=== PATIENT | female | born 1975 | race Caucasian/White ===

== ENCOUNTER 2017-02-06 00:52 | Observation (INO) | payer MEDICAID ==
[2017-02-06] MEDS ORDERED: TERBUTALINE SULFATE 1 MG/ML 1ML VIAL SC ONE (01:15)
[2017-02-06] MEDS ORDERED: LACTATED RINGER'S 1,000 ML IV SCH (01:26)
[2017-02-06] MEDS: TERBUTALINE SULFATE 1 MG/ML 1ML VIAL SC SCH ×3 (01:40→02:00)
[2017-02-06 02:14] LABS: Basophils # (auto) 0 uL; Basophils % (auto) 0.1 % (0.0-2.0); Eosinophils # (auto) 0.1 uL; Eosinophils % (auto) 0.3 % (0.0-7.0); Hematocrit 34.8 % (36.0-46.0); Hemoglobin 11.5 g/dL (12.2-16.2); Lymphocytes # (auto) 2.6 uL; Lymphocytes % (auto) 13.2 % (10.0-50.0); Mean Corpuscular Hemoglobin 27.9 pg (28.0-32.0); Mean Corpuscular Hgb Conc. 33.1 g/dL (32.0-36.0); Mean Corpuscular Volume 84.3 fL (80.0-100.0); Mean Platelet Volume 9.5 fL (6.9-10.8); Monocytes # (auto) 0.9 uL; Monocytes % (auto) 4.5 % (0.0-12.0); Neutrophils # (auto) 15.9 uL; Neutrophils % (auto) 81.9 % (37.0-80.0); Nucleated Red Blood Cells % 0.1 %; Platelet Count (auto) 243 10^3/uL (140-450); Red Cell Distribution Width 13.7 % (11.8-14.3); White Blood Cell 19.4 10^3/uL (4.4-10.8)
[2017-02-06 02:30] LABS: INR 0.84 (0.9-1.15); Prothrombin Time 9.1 sec (9.37-12.3)
[2017-02-06 02:35] LABS: Albumin 2.3 g/dL (3.4-5.0); Calcium 9.1 mg/dL (8.5-10.1); Potassium 3.3 mmol/L (3.5-5.1)
[2017-02-06 02:37] LABS: BUN/Creatinine Ratio 14.4
[2017-02-06 02:40] LABS: Bilirubin, Total 0.4 mg/dL (0.2-1.0); Total Protein 7.5 g/dL (6.4-8.2)
[2017-02-06 02:48] LABS: Urine Bilirubin Negative (Negative); Urine Blood TRACE /uL (Negative); Urine Color Colorless (Yellow); Urine Glucose Normal (Normal); Urine Ketone Negative (Negative); Urine Nitrite Negative (Negative); Urine RBC <1 /hpf (0 - 4); Urine Squamous Epithelial Cell FEW /hpf (<5); Urine Urobilinogen Normal (Negative)
[2017-02-06] MEDS ORDERED: EMTRTAB7 PO (05:01)
[2017-02-08 11:07] LABS: HTLV-I/II Antibodies Qual Negative (Negative)
== END 2017-02-06 01:34 | disposition left against medical advice (07) | DRG 566 ==
LOC: LDRP 00:52
PROVIDERS: ADMIT Obstetrics & Gynecology; ATTEND Obstetrics & Gynecology
DX: O26.893 Other specified pregnancy related conditions, third trimester (principal); B20 Human immunodeficiency virus [HIV] disease; O98.713 Human immunodeficiency virus [HIV] disease complicating pregnancy, third trimester; R10.9 Unspecified abdominal pain; Z3A.35 35 weeks gestation of pregnancy
CPT/HCPCS: 36415; 59025; 80053; 80307; 81001; 81002; 85025; 85610; 85730; 86592; 86701; 86703; 86762; 86790; 86850; 86900; 86901; 87340; 94760; 96372; G0378; J3105

== ENCOUNTER 2023-03-09 15:40 | Emergency (ER) | payer MEDICAID ==
[~2023-03-09] VITALS: Ht 165.1 cm; Wt 48.0 kg
[~2023-03-09 15:40] MED LIST: EMTRTAB7 PO
[2023-03-09 16:20] VITALS: BP 102/65; PULSE 130; RESP 18; O2SAT 95
[2023-03-09 17:22] LABS: Basophils # (auto) 0 10 ^3/uL (0-0.2); Basophils % (auto) 0.2 % (0.0-2.0); Eosinophils # (auto) 0.2 10 ^3/uL (0-0.8); Eosinophils % (auto) 1.9 % (0.0-7.0); Hematocrit 38.3 % (36.0-46.0); Hemoglobin 12.9 g/dL (12.2-16.2); Lymphocytes # (auto) 0.4 10 ^3/uL (0.4-5.4); Lymphocytes % (auto) 5.6 % (10.0-50.0); Mean Corpuscular Hemoglobin 27.9 pg (28.0-32.0); Mean Corpuscular Hgb Conc. 33.7 g/dL (32.0-36.0); Mean Corpuscular Volume 82.8 fL (80.0-100.0); Monocytes # (auto) 0.5 10 ^3/uL (0-1.3); Monocytes % (auto) 6.7 % (0.0-12.0); Neutrophils # (auto) 6.9 10 ^3/uL (1.6-8.6); Neutrophils % (auto) 85.6 % (37.0-80.0); Nucleated Red Blood Cells % 0.3 %; Red Blood Cells 4.63 10^6/uL (4.0-5.20); Red Cell Distribution Width 16.2 % (11.8-14.3)
[2023-03-09] MEDS ORDERED: SODIUM CHLORIDE 0.9% 500 ML IVB ONE (17:45)
[2023-03-09] MEDS ORDERED: SODIUM CHLORIDE 0.9% 1,000 ML IV ONE (17:45)
[2023-03-09 17:53] LABS: Bilirubin, Total 0.4 mg/dL (0.2-1.0); Lipase 28 U/L (12-53); Total Protein 8.1 g/dL (5.7-8.2)
[2023-03-09 17:59] LABS: Alanine Aminotransferase 22 U/L (7-40); Alkaline Phosphatase 188 U/L (46-116); Anion Gap 4 (5-15); Aspartate Aminotransferase 23 U/L (13-40); BUN/Creatinine Ratio 10.3 (10.0-20.0); Blood Urea Nitrogen 10 mg/dL (9-23); Calcium 8.9 mg/dL (8.7-10.4); Carbon Dioxide 28 mmol/L (20-30); Chloride 103 mmol/L (98-107); Glucose 91 mg/dL (74-106); Potassium 3.8 mmol/L (3.5-5.1); Sodium 135 mmol/L (136-145)
[2023-03-09] MEDS ORDERED: IOHEXOL 350 MG/ML 100ML IJ ONE (18:16)
[2023-03-09] MEDS ORDERED: IOHEXOL 300 MG/ML 100ML BOTTLE IJ ONE (18:18)
== END 2023-03-09 20:54 | disposition left against medical advice (07) ==
LOC: ER 15:40
DX: K52.9 Noninfective gastroenteritis and colitis, unspecified (principal); R10.2 Pelvic and perineal pain; F17.200 Nicotine dependence, unspecified, uncomplicated; F12.10 Cannabis abuse, uncomplicated; Z79.899 Other long term (current) drug therapy
CPT/HCPCS: 36415; 71046; 74177; 80053; 83690; 83735; 84702; 85025; 99285; Q9967

== ENCOUNTER 2023-10-23 20:51 | Emergency (ER) | payer MEDICAID ==
[~2023-10-23 20:51] MED LIST changes: +ACET500T58 PO; +NITR-87 PO; +ZOFR4T PO
== END 2023-10-23 21:12 | disposition left against medical advice (07) ==
LOC: ER 20:51
DX: M79.10 Myalgia, unspecified site (principal); Z53.21 Procedure and treatment not carried out due to patient leaving prior to being seen by health care provider

== ENCOUNTER 2023-10-27 22:57 | Emergency (ER) | payer MEDICAID ==
[~2023-10-27] VITALS: Ht 165.1 cm; Wt 41.0 kg
[2023-10-27] MEDS: VANCOMYCIN HCL 1000 MG VL IV ONE (23:30)
[2023-10-27] MEDS: METOPROLOL TARTRATE 1MG/1ML-5ML VIAL IV NR (23:30)
[2023-10-27] MEDS: IOHEXOL 350 MG/ML 100ML IJ ONE (23:43)
[2023-10-27 23:53] LABS: Base Excess -3.4 mmol/L (-2.0-2.0)
[2023-10-27] MEDS: NALOXONE HCL 0.4 MG/ML VIAL IV ONE (23:54)
[2023-10-27] MEDS: ACETAMINOPHEN 650 MG RECT SUPP PR ONE (23:55)
[2023-10-27] MEDS: levoFLOXacin 500 MG/100 ML PREMIX BAG IV ONE (23:56)
[2023-10-27] MEDS: SODIUM CHLORIDE 0.9% 1,000 ML IVB ONE (23:57)
[2023-10-28 00:18] LABS: Hematocrit 36.8 % (36.0-46.0); Hemoglobin 12.3 g/dL (12.2-16.2); Mean Corpuscular Hemoglobin 29.4 pg (28.0-32.0); Mean Corpuscular Hgb Conc. 33.4 g/dL (32.0-36.0); Mean Corpuscular Volume 87.8 fL (80.0-100.0); Platelet Count (auto) 148 10^3/uL (140-450); Red Cell Distribution Width 15.9 % (11.8-14.3); White Blood Cell 11.8 10^3/uL (4.4-10.8)
[2023-10-28 00:21] LABS: Basophils % (manual) 0 (0.0-2.0); Blast Cells 0; Eosinophils % (manual) 0 (0-7); Metamyelocytes % 0; Myelocytes % 0; Promyelocytes % 0; Reactive Lymphocytes 0
[2023-10-28 00:32] LABS: Alanine Aminotransferase 61 U/L (7-40); Albumin 3.8 g/dL (3.2-4.8); Alkaline Phosphatase 59 U/L (46-116); Anion Gap 13 (5-15); Aspartate Aminotransferase 186 U/L (13-40); BUN/Creatinine Ratio 31.1 (10.0-20.0); Blood Urea Nitrogen 60 mg/dL (9-23); Calcium 9.8 mg/dL (8.7-10.4); Carbon Dioxide 20 mmol/L (20-30); Chloride 110 mmol/L (98-107); Glucose 119 mg/dL (74-106); Potassium 4.1 mmol/L (3.5-5.1); Sodium 143 mmol/L (136-145)
[2023-10-28 00:33] LABS: Bilirubin, Total 0.7 mg/dL (0.2-1.0); Total Protein 8.2 g/dL (5.7-8.2)
[2023-10-28 00:35] LABS: Blood Alcohol < 3.0 mg/dL (<10); INR 1.14 (0.9-1.15); Partial Thromboplastin Time 33.2 SEC (24.5-34.5)
[2023-10-28 00:41] LABS: Lactic Acid w/Reflex 4.6 mmol/L (0.4-2.0)
[2023-10-28 00:46] LABS: Band Neutrophils % (manual) 2; Lymphocytes % (manual) 1 (10.0-50.0); Monocytes % (manual) 2 (0-12); Platelet Estimate Adequate
[2023-10-28] MEDS: VANCOMYCIN 1GM/200ML 200 ML IV ONE (00:56)
[2023-10-28] MEDS: SODIUM CHLORIDE 0.9% 1,000 ML IV ONE (01:18)
[2023-10-28] MEDS: LORazepam 2MG/ML-1ML VIAL ONE (01:34)
[2023-10-28] MEDS: ASPirin 325 MG TAB PO ONE (01:35)
[2023-10-28] MEDS: LORazepam 2MG/ML-1ML VIAL IV ONE (01:35)
[2023-10-28] MEDS: SUCCINYLCHOLINE CHLORIDE 20 MG/ML 10ML VIAL IV ONE ×2 (01:56)
[2023-10-28] MEDS: PROPOFOL 100 ML IV ONE (01:56)
[2023-10-28] MEDS: PROPOFOL 10 MG/ML 20 ML IV ONE ×2 (01:57→03:53)
[2023-10-28 02:00] VITALS: O2SAT 100
[2023-10-28 02:39] VITALS: BP 100/64; PULSE 111; RESP 18; O2SAT 100
[2023-10-28] MEDS: ENOXAPARIN SOD 60 MG/0.6 ML SYRINGE SC ONE (03:04)
[2023-10-28] MEDS: ENOXAPARIN SOD 40 MG/0.4 ML SYRINGE SC ONE (03:04)
[2023-10-28 03:38] LABS: Urine Bacteria MANY /hpf (None Seen); Urine Blood 3+ /uL (Negative); Urine Clarity Turbid (Clear); Urine Color Yellow (Yellow); Urine Hyaline Cast MANY /lpf (0 - 2); Urine Mucus MODERATE (None Seen); Urine Protein, UAD 2+ (Negative); Urine Specific Gravity 1.033 (1.001-1.035); Urine Urobilinogen 4 mg/dL (Negative); Urine WBC 3 /hpf (0 - 5)
[2023-10-28 03:49] LABS: Amphetamine Screen, Urine Pos (NEGATIVE); Barbiturate Scree,Urine Neg (NEGATIVE); Benzodiazephine Screen, Urine Neg (NEGATIVE); Cocaine Screen, Urine Neg (NEGATIVE); Opiate Scree,Urine Neg (NEGATIVE); Phencyclidine Screen, Urine Neg (NEGATIVE)
[2023-10-28 03:50] LABS: Cannabinoid Screen, Urine Neg (NEGATIVE)
[2023-10-28] MEDS: PROPOFOL 100 ML IV SCH (04:00)
[2023-10-28] MEDS: ROCURONIUM 10MG/ML 10ML VIAL IV ONE (04:05)
[2023-10-28 04:48] VITALS: BP 129/80; PULSE 122; RESP 18; TEMP 100.2; O2SAT 95
== END 2023-10-28 04:48 | disposition short-term general hospital (02) ==
LOC: ER 22:57 → EDBD 22:57 → ER 10-28 04:48
DX: T81.82XA Emphysema (subcutaneous) resulting from a procedure, initial encounter (principal); R41.82 Altered mental status, unspecified; G93.41 Metabolic encephalopathy; I72.9 Aneurysm of unspecified site; T43.651A Poisoning by methamphetamines accidental (unintentional), initial encounter; R79.89 Other specified abnormal findings of blood chemistry; A41.9 Sepsis, unspecified organism; E86.0 Dehydration; R79.1 Abnormal coagulation profile; J18.9 Pneumonia, unspecified organism; D35.2 Benign neoplasm of pituitary gland; I61.1 Nontraumatic intracerebral hemorrhage in hemisphere, cortical; Z21 Asymptomatic human immunodeficiency virus [HIV] infection status; Z79.899 Other long term (current) drug therapy; Y92.89 Other specified places as the place of occurrence of the external cause
CPT/HCPCS: 31500; 36415; 36600; 70450; 71275; 73201; 80053; 80307; 80320; 81001; 82805; 83605; 84484; 85007; 85027; 85379; 85610; 85730; 87040; 87070; 87077; 87086; 87186; 87205; 93005; 96361; 96365; 96372; 96375; 99291; 99292; J0330; J1650; J1956; J2060; J2310; J2704; J3370; J7030; Q9967